=== PATIENT | female | born 1970 | race Caucasian/White ===

== ENCOUNTER → 2016-10-25 | Outpatient (CLI) | payer BC, OTHER ==
[~2016-10-25] MED LIST: BUPRTAB51 PO; CALCTAB5 PO; FLUT0.0529 NAE; MULT-506 PO; NORT10CA2 PO; OXYC7.5T78 PO; SPIR25TA PO
--- NOTE | 2016-10-25 17:16 | DIAGNOSTIC IMAGING REPORT ---
CERVICAL SPINE MRI HISTORY: Pain. Neuropathy. M62.838 M54.2 TECHNIQUE: Multiplanar multisequence MRI of the cervical spine was performed without the use of contrast. COMPARISON STUDY: None. FINDINGS: Unremarkable signal characteristics of the vertebral bodies. Mild degenerative intervertebral disc changes throughout. Posterior bulging disc components at multiple intervertebral disc space levels. C2-C3: No significant central canal or neural foraminal narrowing. C3-C4: Slight broad-based disc bulge. No significant deformity of the cervical cord or compromise of the neural foramina C4-C5: Minimal osteophytic narrowing right neural foramina C5-C6: Minimal broad-based disc bulge. No contact with the cervical cord or neural elements C6-C7: Broad-based left central bulging disc. Mild narrowing left neuroforamina. No significant impact with anterolaterally minimal impact of the left anterior cervical cord C7-T1: No significant central canal or neural foraminal narrowing. IMPRESSION: Moderate disc bulges throughout the bulk of the cervical region. No evidence for major disc herniation or significant component of spinal stenosis. Electronically signed by: Kishan Genao M.D. 10/25/2016 5:14 PM Dictated Date/Time: 10/25/2016 5:11 PM
== END | disposition home or self-care (01) ==
LOC: C.MRI 15:46
PROVIDERS: ATTEND Family Medicine Sports Medicine
DX: M62.838 Other muscle spasm (principal); M50.20 Other cervical disc displacement, unspecified cervical region

== ENCOUNTER → 2017-03-21 | Outpatient (CLI) | payer BC, OTHER ==
[~2017-03-21] MED LIST changes: +GADAVIST IV PRN
--- NOTE | 2017-03-21 14:50 | DIAGNOSTIC IMAGING REPORT ---
BRAIN COMBO FOR IAC CLINICAL HISTORY: 46 years-old Female presenting with dizziness and clinical concern for retrocochlear pathology. TECHNIQUE: Multisequence, multiplanar MR imaging of the brain was performed before and after the administration of intravenous contrast. IV contrast: 5.5 mL of Gadavist. COMPARISON: None. FINDINGS: Normal midline sagittal structures. Small focus of T2/FLAIR hyperintensity in the subinsular white matter, nonspecific possibly age-related. No enhancing mass lesion. Ortiz-white matter differentiation preserved. No restricted diffusion to suggest acute ischemia. No midline shift or mass effect. No hemorrhage or extra-axial fluid collection. No abnormal thickening or enhancement of the 7th or 8th cranial nerves along the course of the internal auditory canal. Normal signal intensity within the semicircular canals and cochlea. No enhancing mass lesion. T2 skull base flow voids preserved. Bone marrow signal intensity within the calvarium normal. Paranasal sinuses and mastoid air cells grossly clear. Orbits normal. Upper cervical spine normal. IMPRESSION: 1. Normal internal auditory canals and inner ears structures. 2. No acute intracranial pathology. Electronically signed by: Danny Goldberg M.D. 03/21/2017 2:49 PM Dictated Date/Time: 03/21/2017 2:41 PM
== END | disposition home or self-care (01) ==
LOC: C.MRI 13:45
PROVIDERS: ATTEND Physician Assistant
DX: R42 Dizziness and giddiness (principal)

== ENCOUNTER → 2017-05-07 | Outpatient (CLI) | payer BC, OTHER ==
[~2017-05-07] MED LIST changes: -GADAVIST IV PRN
== END | disposition home or self-care (01) ==
LOC: C.PATH 09:06
PROVIDERS: ATTEND Physical Medicine & Rehabilitation
DX: R59.0 Localized enlarged lymph nodes (principal)

== ENCOUNTER → 2017-05-17 | Outpatient (CLI) | payer BC, OTHER ==
--- NOTE | 2017-05-17 09:39 | DIAGNOSTIC IMAGING REPORT ---
SOFT TISSUE HEAD/NECK-THYROID CLINICAL HISTORY: 46 years-old Female with ENLARGED LYMPH NODE. Acute palpable abnormality of the left neck concerning for adenopathy. Initial exam. COMPARISON: None available. TECHNIQUE: Multiple real time sonographic images of the thyroid were obtained accessing sofia scale appearance and color doppler flow. FINDINGS: Within the area of concern of the posterior left neck no focal mass is identified. Incidentally, there are scattered nonenlarged lymph nodes of the right and left neck identified, largest of which measures 1.7 x 1.5 x 0.6 cm on the left. IMPRESSION: 1. No focal mass identified within the area of concern. 2. Incidental note is made of nonenlarged bilateral neck lymph nodes which suggest physiologic reactive etiology. The above report was generated using voice recognition software. It may contain grammatical, syntax or spelling errors. Electronically signed by: Ender Ruiz M.D. 05/17/2017 9:38 AM Dictated Date/Time: 05/17/2017 9:35 AM
== END | disposition home or self-care (01) ==
LOC: C.ULTR 08:57
PROVIDERS: ATTEND Family Medicine
DX: R59.0 Localized enlarged lymph nodes (principal)

== ENCOUNTER → 2017-06-17 | Outpatient (CLI) | payer BC, OTHER ==
--- NOTE | 2017-06-17 09:35 | DIAGNOSTIC IMAGING REPORT ---
C-SPINE ROUTINE 4 OR 5 VIEWS CLINICAL HISTORY: N88.8 L CERVICAL MASS COMPARISON STUDY: 02/08/2016 FINDINGS: There is straightening of the normal cervical lordosis. There are degenerative changes most pronounced the C5-6 and C6-7 levels. No acute fractures or traumatic subluxations are visualized. No destructive lesions are evident. No soft tissue masses are evident on conventional radiographic imaging. IMPRESSION: Progressive mild to moderate degenerative changes at the C5-6 and C6-7 levels. Electronically signed by: Tj Morin M.D. 06/17/2017 9:33 AM Dictated Date/Time: 06/17/2017 9:31 AM
== END | disposition home or self-care (01) ==
LOC: C.RAD1850 09:16
PROVIDERS: ATTEND Family Medicine
DX: M50.322 Other cervical disc degeneration at C5-C6 level (principal); M50.323 Other cervical disc degeneration at C6-C7 level

== ENCOUNTER → 2017-09-06 | Outpatient (CLI) | payer BC, OTHER | END | disposition home or self-care (01) | LOC: C.PATHSPEC 16:55 | PROVIDERS: ATTEND Dentist Oral and Maxillofacial Surgery | DX: M27.8 Other specified diseases of jaws (principal) ==